=== PATIENT | male | born 1950 | race Native Hawaiian/Other Pacific Islander ===

== ENCOUNTER 2022-12-19 09:49 | Day surgery (SDC) | payer OTHER ==
--- NOTE | 2022-12-19 08:57 | HP ---
DATE OF SURGERY: 12/19/2022 HISTORY OF PRESENT ILLNESS: The patient is a 72-year-old with some cough and vomiting, sinus drainage at the same time, some reflux, some dysphagia mid to distal esophagus at times. PAST MEDICAL HISTORY: Diabetes mellitus type II, reflux, ulcers, chronic obstructive pulmonary disease in the past. PAST SURGICAL HISTORY: Appendectomy. Inguinal hernia repair. EGD, Colonoscopy. Back surgery. MEDICATIONS: Tamsulosin, sildenafil, propranolol, omeprazole, nicotine, fluticasone, albuterol sulfate. ALLERGIES: PENICILLIN. FAMILY HISTORY: Heart disease, lung cancer. SOCIAL HISTORY: Smoker, occasional alcohol use denies abuse. REVIEW OF SYSTEMS: Fourteen systems reviewed. No chest pain or palpitations. Other systems negative or noncontributory as above and per preadmission questionnaire. PHYSICAL EXAMINATION: GENERAL: No acute distress. HEENT: Sclerae nonicteric. NECK: No JVD. CHEST: Equal excursion, nonlabored breathing. CVS: Regular rate and rhythm. ABDOMEN: Soft, nontender. EXTREMITIES: No edema. NEURO: Alert, oriented, moving extremities symmetrically. RECTAL: Deferred timed to endoscopy exam. PSYCH: Appropriate mood and affect. SKIN: Dry. IMPRESSION: History of reflux, some vomiting, some dysphagia mid to distal esophagus, he is in need of upper endoscopy possible biopsy to evaluate for gastritis, peptic ulcer disease, esophagitis, esophageal narrowing. I feel he would benefit from EGD, possible biopsy possible dilatation. General risk of bleeding or infection, risk of bowel injury or perforation, risk of missed or nondiagnosis or incomplete exam, possibility of no improvement of his symptoms although if dilatation does help may need to be repeated again down the road. It may be more of a functional neurologic problem or more of an allergy-type problem may need to follow up with ENT specialist in the future. He understands and agrees to the planned procedure, will proceed with EGD, possible biopsy, possible dilatation as an outpatient.
[2022-12-19] MEDS ORDERED: Lactated Ringers 1,000 ML IV SCH (10:30)
[2022-12-19] MEDS ORDERED: Xylocaine-Mpf 2% 5 Ml Vial ONE (13:04)
[2022-12-19] MEDS ORDERED: DIPRIVAN 200 MG/20 ML IV ONE ×2 (13:05→13:26)
[2022-12-19 14:15] VITALS: PULSE 56
[2022-12-19 14:27] VITALS: BP 142/79; O2SAT 93
--- NOTE | 2022-12-19 15:15 | OP ---
SURGERY DATE/TIME: 12/19/2022 1308 PREOPERATIVE DIAGNOSIS: History of some sinus drainage, history of reflux, history of dysphagia distal esophagus. POSTOPERATIVE DIAGNOSES: 1) Short segment erosive esophagitis distal esophagus, esophageal narrowing. 2) Small gastric polyp. 3) Minimal gastritis. 4) Question submucosal antral density of unclear etiology. PROCEDURES: 1) EGD with cold biopsy of small bowel. 2) Cold biopsy of antrum. 3) Cold biopsy gastric polyp. 4) Cold biopsy of mucosa overlying antrum, submucosal density. 5) Esophageal balloon dilatation distal esophageal narrowing after cold biopsy distal short segment erosive esophagitis. 6) Esophageal balloon dilatation distal esophageal narrowing (size 20 balloon dilator). SURGEON: Dr. Jadon Obrien. ANESTHESIA: MAC. ESTIMATED BLOOD LOSS: Minimal. INDICATIONS: As noted above. Risks and benefits explained in detail and not limited to and consent was obtained. DESCRIPTION OF PROCEDURE AND FINDINGS: The patient is taken to the endoscopy room. MAC anesthesia introduced. After official time out and no disagreement with planned procedure, bite block positioned. Video gastroscope easily passed down the esophagus through a narrowed area of distal esophagus. Short segment distal erosive esophagitis. Scope passed through the pylorus to the third portion of the duodenum. Third, second and first portion of duodenum no signs of any inflammation or ulcers. A little bit of flattening in the fold. Cold biopsy taken to evaluate for histology for celiac or other etiology. Good hemostasis noted. Scope pulled back in the stomach. He had some gastric erythema. Cold biopsy taken to evaluate for Helicobacter pylori in the antrum. Good hemostasis noted. The patient did have tennis ball size or smaller submucosal density in the antral area. It is unclear if is lipoma versus other etiology. Cold biopsy taken of the mucosa overlying this. He also had one little small gastric polyp more towards the fundus removed with cold biopsy forceps. Otherwise cold biopsy taken of erosion in distal esophagitis. Good hemostasis noted. The remainder of the esophagus had a few little spots or areas of superficial erosion. No signs of any obvious masses or mucosal lesion. The patient did have a narrowed area at the distal esophagus. It was felt that this warranted balloon dilatation. Scope is passed back down the stomach. A 20 balloon catheter carefully inserted, pulled back up to the narrowed area. Once equipment was available carefully inflated first stage size 18 for 30 seconds, second stage size 18 for 30 seconds, final stage size 20 balloon dilator for 2 minutes. Balloon catheter was released, decompressed and withdrawn. The scope much more easily passed through this area. Mild mucosal abrasion but no evidence of any full thickness issues. Good hemostasis noted. The scope is withdrawn. The patient tolerated the procedure well. Findings discussed with his family out in the waiting area.
== END 2022-12-19 14:28 | disposition home or self-care (01) ==
LOC: SDC 09:49
PROVIDERS: ATTEND Surgery
DX: Z87.19 Personal history of other diseases of the digestive system (principal); Z87.09 Personal history of other diseases of the respiratory system; K22.10 Ulcer of esophagus without bleeding; K22.2 Esophageal obstruction; K31.7 Polyp of stomach and duodenum; K29.70 Gastritis, unspecified, without bleeding
CPT/HCPCS: C1726; J2704